=== PATIENT | female | born 2000 | race Caucasian/White ===

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

== ENCOUNTER 2020-02-08 19:50 | Emergency (ER) | payer OTHER ==
[2020-02-08 20:05] VITALS: TEMP 98.1; BMI 22.7
--- NOTE | 2020-02-08 20:06 | PDOC ---
Rapid Medical Evaluation Chief Complaint: Chest Pain Time Seen by Provider: 02/08/20 19:57 Medical Evaluation: Allergies Allergy/AdvReac Type Severity Reaction Status Date / Time No Known Allergies Allergy Verified 12/01/19 20:55 02/08/20 20:04 I have performed a brief in-person evaluation of this patient. The patient presents with a chief complaint of: Pt is a 19 y/o female who is 28w1d gestation with mid sternal chest pain that she has had today. Worse with deep breath. Had bodyaches and stomach pain Friday which resolved on its own. No vaginal bleeding or abdominal pain now. Pertinent physical exam findings: stable, nontoxic. I have ordered the following: saline lock, labs, ekg The patient will proceed to the ED for further evaluation Discharge Disposition - Diagnosis Chest pain - Referrals - Patient Instructions - Post Discharge Activity
[2020-02-08 22:06] LABS: BASO % 0.3 % (0-2.0); EOS % 4.6 % (0-4.5); HEMATOCRIT 30.5 % (32.4-45.2); HEMOGLOBIN 10.5 GM/dL (10.7-15.3); LYMPH % 32.7 % (8-40); MCH 29.2 pg (25.7-33.7); MCHC 34.2 g/dl (32.0-36.0); MEAN CELL VOLUME 85.3 fl (80-96); MEAN PLT VOLUME 10.1 fl (7.5-11.1); MONO % 6.3 % (3.8-10.2); NEUT % 56.1 % (42.8-82.8); PLATELET COUNT 146 K/MM3 (134-434); RBC 3.58 M/mm3 (3.60-5.2); RDW 14.6 % (11.6-15.6); WHITE BLOOD COUNT 8.5 K/mm3 (4.0-10.0)
[2020-02-08 22:39] LABS: ALBUMIN 2.7 g/dl (3.4-5.0); ALK PHOS 171 U/L (45-117); ANION GAP 7 MMOL/L (8-16); BILIRUBIN,TOTAL 0.6 mg/dL (0.2-1); BLOOD UREA NITROGEN 7.7 mg/dL (7-18); CALCIUM 8.2 mg/dL (8.5-10.1); CHLORIDE 108 mmol/L (98-107); CO2 25 mmol/L (21-32); CREATININE 0.6 mg/dL (0.55-1.3); GLUCOSE,RANDOM 75 mg/dL (74-106); MAGNESIUM 2.2 mg/dL (1.8-2.4); POTASSIUM 3.9 mmol/L (3.5-5.1); SGOT/AST 23 U/L (15-37); SGPT/ALT 22 U/L (13-61); SODIUM 140 mmol/L (136-145); TOT PROT 6.1 g/dl (6.4-8.2)
--- NOTE | 2020-02-08 22:43 | PDOC ---
*Physical Exam - Vital Signs Last Vital Signs Temp Pulse Resp BP Pulse Ox 98.1 F 53 L 17 144/89 100 02/08/20 20:03 02/08/20 20:03 02/08/20 20:03 02/08/20 20:03 02/08/20 20:03 ED Treatment Course - LABORATORY CBC & Chemistry Diagram: 02/08/20 21:35 02/08/20 21:35 - ADDITIONAL ORDERS Additional order review: Laboratory Results 02/08/20 21:35 Sodium 140 Potassium 3.9 Chloride 108 H Carbon Dioxide 25 Anion Gap 7 L BUN 7.7 Creatinine 0.6 Est GFR (CKD-EPI)AfAm 153.15 Est GFR (CKD-EPI)NonAf 132.14 Random Glucose 75 Calcium 8.2 L Magnesium 2.2 Total Bilirubin 0.6 AST 23 ALT 22 Alkaline Phosphatase 171 H Total Protein 6.1 L Albumin 2.7 L 02/08/20 21:35 RBC 3.58 L MCV 85.3 MCHC 34.2 RDW 14.6 MPV 10.1 Neutrophils % 56.1 Lymphocytes % 32.7 D Monocytes % 6.3 Eosinophils % 4.6 H Basophils % 0.3 Medical Decision Making - Medical Decision Making 02/08/20 22:43 Patient seen by the advanced practice provider under my supervision. Ancillary testing reviewed as necessary. I agree with plan as outlined by the advanced practice provider. Discharge - Discharge Information Problems reviewed: Yes Clinical Impression/Diagnosis: Chest pain Qualifiers: Chest pain type: unspecified Qualified Code(s): R07.9 - Chest pain, unspecified Disposition: HOME - Follow up/Referral Referrals: Mary Grace Cruz MD [Primary Care Provider] - - Patient Discharge Instructions Patient Printed Discharge Instructions: DI for Atypical Chest Pain Additional Instructions: Your Discharge Instructions: You must call primary care physician within 24 hours to arrange follow-up. Return to the Emergency Department with any new, persistent or worsening sy mptoms, for fever, chills, SOB, dizziness or any other concerning changes that may occur. - Post Discharge Activity
--- NOTE | 2020-02-08 23:04 | PDOC ---
History of Present Illness - General Chief Complaint: Chest Pain Stated Complaint: CHEST PAIN Time Seen by Provider: 02/08/20 19:57 History Source: Patient Exam Limitations: No Limitations - History of Present Illness Initial Comments: 02/08/20 23:03 Patient is a 15-year-old female who is 28 weeks here with complaints of chest pain that radiates to the back and pain with breathing. Symptoms started this morning states was mild but progressively worsened this evening. Patient endorsing having nausea and vomiting yesterday. Patient states pain feels like a pressure in her upper chest and back 09/09 with no alleviating factors. Pain is worse with breathing and feels short of breath. She has not had any symptoms like this in the past. States that she sometimes right with her boyfriend who is a cable cutter and swager, in the cab. States she took Tylenol today at about 1 PM due to a headache, but did nothing for her chest pain. However denies leg swelling, tachycardia, abdominal pain, vaginal bleeding. PMD: Woman to woman PMHX: As above PSOCHX: neg etoh, neg cig, neg drug ALL: NKDA GENERAL/CONSTITUTIONAL: [No fever or chills. No weakness. No weight change.] HEAD, EYES, EARS, NOSE AND THROAT: [No change in vision. No ear pain or discharge. No sore throat.] CARDIOVASCULAR: [(+) chest pain or shortness of breath.] RESPIRATORY: [No cough, wheezing, or hemoptysis.] GASTROINTESTINAL: [No nausea, vomiting, diarrhea or constipation. No rectal bleeding.] GENITOURINARY: [No dysuria, frequency, or change in urination.] MUSCULOSKELETAL: [No joint or muscle swelling or pain. No neck or back pain.] SKIN AND BREASTS: [No rash or easy bruising.] NEUROLOGIC: [No headache, vertigo, loss of consciousness, or loss of sensation.] PSYCHIATRIC: [No depression or anxiety.] ENDOCRINE: [No increased thirst. No abnormal weight change.] HEMATOLOGIC/LYMPHATIC: [No anemia, easy bleeding, or history of blood clots.] ALLERGIC/IMMUNOLOGIC: [No hives or skin allergy. No latex allergy.] GENERAL: [The patient is awake, alert, and fully oriented, in no acute distress.] HEAD: [Normal with no signs of trauma.] EYES: [Pupils equal, round and reactive to light, extraocular movements intact, sclera anicteric, conjunctiva clear.] ENT: [Ears normal, nares patent, oropharynx clear without exudates. Moist mucous membranes.] NECK: [Normal range of motion, supple without lymphadenopathy, JVD, or masses.] LUNGS: [Breath sounds equal, clear to auscultation bilaterally. No wheezes, and no crackles, nontender chest wall.] HEART: [Regular rate and rhythm, normal S1 and S2 without murmur, rub.] ABDOMEN: [Soft, nontender, normoactive bowel sounds. No guarding, no rebound. No masses.] EXTREMITIES: [Normal range of motion, no edema. No clubbing or cyanosis. No cords, erythema, or tenderness.] NEUROLOGICAL: [Cranial nerves II through XII grossly intact. Normal speech, nor mal gait.] PSYCH: [Normal mood, normal affect.] Past History - Past Medical History Allergies/Adverse Reactions: Allergies Allergy/AdvReac Type Severity Reaction Status Date / Time No Known Allergies Allergy Verified 02/08/20 20:05 Home Medications: Ambulatory Orders Pantoprazole Sodium [Protonix -] 40 mg PO BID tablet.ec 07/14/19 COPD: No - Reproductive History Therapeutic (s) & number: No - Psycho Social/Smoking Cessation Hx Smoking History: Never smoked Have you smoked in the past 12 months: No Information on smoking cessation initiated: No Hx Alcohol Use: No Drug/Substance Use Hx: No Substance Use Type: Alcohol Hx Substance Use Treatment: Yes *Physical Exam - Vital Signs Last Vital Signs Temp Pulse Resp BP Pulse Ox 98.1 F 61 20 108/71 100 02/09/20 03:13 02/09/20 03:13 02/09/20 03:13 02/09/20 03:13 02/09/20 03:13 ED Treatment Course - LABORATORY CBC & Chemistry Diagram: 02/08/20 21:35 02/08/20 21:35 - ADDITIONAL ORDERS Additional order review: Laboratory Results 02/09/20 02/08/20 00:00 21:35 Sodium 140 Potassium 3.9 Chloride 108 H Carbon Dioxide 25 Anion Gap 7 L BUN 7.7 Creatinine 0.6 Est GFR (CKD-EPI)AfAm 153.15 Est GFR (CKD-EPI)NonAf 132.14 Random Glucose 75 Calcium 8.2 L Magnesium 2.2 Total Bilirubin 0.6 AST 23 ALT 22 Alkaline Phosphatase 171 H Creatine Kinase 51 Troponin I < 0.02 Total Protein 6.1 L Albumin 2.7 L Urine Color Yellow Urine Appearance Cloudy Urine pH 6.5 Ur Specific [place] 1.013 Urine Protein 3+ H Urine Glucose (UA) Negative Urine Ketones Negative Urine Blood Negative Urine Nitrite Negative Urine Bilirubin Negative Urine Urobilinogen 0.2 Ur Leukocyte Esterase 1+ H Urine WBC (Auto) 30 Urine RBC (Auto) 1 Urine Casts (Auto) 2 U Epithel Cells (Auto) 13.7 Urine Bacteria (Auto) 336.7 02/08/20 21:35 RBC 3.58 L MCV 85.3 MCHC 34.2 RDW 14.6 MPV 10.1 Neutrophils % 56.1 Lymphocytes % 32.7 D Monocytes % 6.3 Eosinophils % 4.6 H Basophils % 0.3 - RADIOLOGY Radiology Studies Ordered: Category Date Time Status CHEST CTA [CT] Stat CT Scan 02/09/20 00:48 Taken Medical Decision Making - Medical Decision Making 02/08/20 23:03 Patient is a 15-year-old female who is 28 weeks here with complaints of chest pain that radiates to the back and pain with breathing. Symptoms started this morning states was mild but progressively worsened this evening. Patient endorsing having nausea and vomiting yesterday. Patient states pain feels like a pressure in her upper chest and back 10/10 with no alleviating factors. Pain is worse with breathing and feels short of breath. She has not had any symptoms like this in the past. States that she sometimes right with her boyfriend who is a cable cutter and swager, in the cab. States she took Tylenol today at about 1 PM due to a headache, but did nothing for her chest pain. However denies leg swelling, tachycardia, abdominal pain, vaginal bleeding. refused medication for pain. Patient with chest pain and shortness of breath at risk for PE since she is . MSE labs done will review. CTA chest to rule out PE EKG: SB at rate 46, normal axis, no ST-T wave changes 02/09/20 02:56 Patient Full Name: JONATHAN SHOEMAKER Patient Accession No: [id number] Patient : 2000 Reason for Exam: chest pain and sob r/o PE Referring Physician: Patient Name: SAHARA CASTILLO THIS IS A PRELIMINARY REPORT FROM [facility] DATE OF SERVICE: 2020-02-09 01:07:43 IMAGES: [id number] EXAM: CHEST CTA HISTORY: Rule out PE COMPARISON: None. FINDINGS: There is no PE or dissection. Heart size is normal. Residual thymic tissue is noted. The trachea and bronchi are patent. There is no pleural or per icardial effusion. The lungs are clear. No fractures identified. The upper abdominal structures are normal. IMPRESSION: Normal exam. One or more of the following dose reduction techniques were used: automated exposure control, adjustment of the mA and/or kV according to patient size, use of iterative reconstructive technique. THIS DOCUMENT HAS BEEN ELECTRONICALLY SIGNED Umer Conklin MD 02/09/2020 02:48 EST M.D. Please call [facility] [phone] ([phone]) with questions. INTERPRETING RADIOLOGIST: Burt Conklin MD Electronically Signed: Feb 09, 2020 02:49AM EDT Patient remained stable in the ER no shortness of breath. Selected Entries 02/09/20 03:13 Temperature 98.1 F Pulse Rate [ 61 Left Apical] Respiratory 20 Rate Blood Pressure 108/71 [Right Arm] O2 Sat by Pulse 100 Oximetry (%) I discussed the physical exam findings, ancillary test results and final diagnoses with the patient. I answered all of the patient's questions. The patient was satisfied with the care received and felt comfortable with the di scharge plan and treatment plan. The Patient agrees to follow up with the primary care physician within 24-72 hours. Discharge - Discharge Information Problems reviewed: Yes Clinical Impression/Diagnosis: Chest pain Qualifiers: Chest pain type: unspecified Qualified Code(s): R07.9 - Chest pain, unspecified Condition: Improved Disposition: HOME - Admission No - Follow up/Referral Referrals: Mary Grace Cruz MD [Primary Care Provider] - - Patient Discharge Instructions Patient Printed Discharge Instructions: DI for Atypical Chest Pain Additional Instructions: Your Discharge Instructions: You must call primary care physician within 24 hours to arrange follow-up. Return to the Emergency Department with any new, persistent or worsening symptoms, for fever, chills, SOB, dizziness or any other concerning changes that may occur. - Post Discharge Activity
[2020-02-09 01:00] LABS: EPI CELLS 13.7 /HPF (0-5/HPF); HYALINE CASTS 2 /lpf (0-8); PH,URINE 6.5 (5.0-8.0); URINE APPEARANCE CLOUDY; URINE BACTERIA 336.7 /hpf (NEGATIVE); URINE BILIRUBIN NEGATIVE (NEGATIVE); URINE COLOR YELLOW; URINE GLUCOSE (UA) NEGATIVE (NEGATIVE); URINE KETONE NEGATIVE (NEGATIVE); URINE LEUK ESTERASE 1+ (NEGATIVE); URINE NITRITE NEGATIVE (NEGATIVE); URINE PROTEIN 3+ (NEGATIVE); URINE RBC 1 /hpf (0-4); URINE UROBILINOGEN 0.2 mg/dL (0.2-1.0); URINE WBC 30 /hpf (0-5)
[2020-02-09 03:14] VITALS: BP 108/71; PULSE 61
--- NOTE | 2020-02-09 10:14 | EKG ---
Test Reason : Blood Pressure : / mmHG Vent. Rate : 046 BPM Atrial Rate : 046 BPM P-R Int : 140 ms QRS Dur : 074 ms QT Int : 430 ms P-R-T Axes : 025 024 043 degrees QTc Int : 376 ms SINUS BRADYCARDIA OTHERWISE NORMAL ECG WHEN COMPARED WITH ECG OF 01-DEC-2019 22:34, NO SIGNIFICANT CHANGE WAS FOUND Confirmed by Zohaib Ortiz ([id number]) on 02/09/2020 10:13:35 AM Referred By: Confirmed By:Zohaib Ortiz
== END 2020-02-09 03:52 | disposition home or self-care (01) ==
LOC: JER 19:50
DX: O99.89 Other specified diseases and conditions complicating pregnancy, childbirth and the puerperium (principal); R07.9 Chest pain, unspecified; Z3A.28 28 weeks gestation of pregnancy
CPT/HCPCS: 36415; 71275-TC; 80053; 81003; 82550; 83735; 84484; 85025; 93005; 93010; 99285-25; Q9967